=== PATIENT | male | born 1970 ===

== ENCOUNTER 2017-01-10 12:08 | Inpatient (IN) | payer SELFPAY ==
[2017-01-10 12:34] VITALS: RESP 20
[2017-01-10] MEDS ORDERED: Lidocaine 2% Inj (20ml) INFIL ONE (12:46)
[2017-01-10] MEDS ORDERED: Tetanus/Diphtheria Toxoids 0.5 ml Syringe IM ONE ×2 (12:46→12:52)
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
[2017-01-10] MEDS ORDERED: Lidocaine 2% Inj (20ml) ONE (12:52)
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
[2017-01-10] MEDS ORDERED: Sodium Chloride 0.9% 1,000 ML IV ONE ×2 (14:00→16:32)
[2017-01-10] MEDS ORDERED: DiphenhydrAMINE 50 mg/ml Inj IVP STA (14:07)
[2017-01-10] MEDS ORDERED: DiphenhydrAMINE 50 mg/ml Inj ONE (14:25)
[2017-01-10 14:33] LABS: BASO # 0.1 K/uL (0.0-0.2); BASO % 1.7 % (0.0-2.0); EOS # 0.1 K/uL (0.0-0.7); EOS % 1.3 % (0.0-4.0); HEMATOCRIT 41.3 % (35.0-51.0); LYMPH # 1.7 K/uL (1.0-4.3); LYMPH % 28.9 % (20.0-40.0); MEAN CELL VOLUME 89.8 fL (80.0-94.0); MEAN CORPUSCULAR HEMOGLOBIN 30.1 pg (27.0-31.0); MEAN CORPUSCULAR HGB CONC 33.5 g/dL (33.0-37.0); MEAN PLATELET VOLUME 10.7 fL (7.2-11.7); MONO # 0.4 K/uL (0.0-0.8); MONO % 6.1 % (0.0-10.0); WHITE BLOOD COUNT 5.9 K/uL (4.8-10.8)
[2017-01-10 14:36] LABS: CHLORIDE 99 mmol/L (98-107); INR 1.2
[2017-01-10 14:37] LABS: POTASSIUM 3.6 mmol/L (3.6-5.2); SODIUM 135 mmol/L (132-148)
[2017-01-10 14:39] LABS: ALKALINE PHOSPHATASE 73 U/L (38-126); ALT/SGPT 168 U/L (21-72); AST/SGOT 107 U/L (17-59); BILIRUBIN,TOTAL 0.6 mg/dL (0.2-1.3); BLOOD UREA NITROGEN 11 mg/dL (9-20); CARBON DIOXIDE 26 mmol/L (22-30); GFR AFRICAN-AMERICAN > 60; GLUCOSE,RANDOM 93 mg/dL (75-110); TOTAL PROTEIN 8.4 g/dL (6.3-8.3)
[2017-01-10 14:40] LABS: ALCOHOL SERUM < 10 mg/dl (0-10); CALCIUM 8.9 mg/dl (8.6-10.4)
[2017-01-10] MEDS ORDERED: Sodium Chloride 0.9% 1,000 ML ONE (14:47)
[2017-01-10 14:50] LABS: RBC URINE < 1 /hpf (0-3); URINE BILIRUBIN NEGATIVE (NEGATIVE); URINE BLOOD NEGATIVE (NEGATIVE); URINE COLOR Yellow (YELLOW); URINE GLUCOSE (UA) NORMAL (Normal); URINE KETONE NEGATIVE (NEGATIVE); URINE LEUKOCYTE ESTERASE NEG Leu/uL (Negative); URINE PROTEIN 1+ mg/dL (NEGATIVE); WBC URINE < 1 /hpf (0-5)
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
[2017-01-10] MEDS: Sodium Chloride 0.9% 1,000 ML IV SCH (18:00)
[2017-01-10] MEDS: Enoxaparin 100 mg Syringe SC SCH (19:56)
[2017-01-11] MEDS: Sodium Chloride 0.9% 1,000 ML IV SCH ×4 (03:41→23:22)
[2017-01-11 08:11] LABS: INR 1.2
[2017-01-11 08:19] LABS: BASO % 0.4 % (0.0-2.0); EOS # 0.1 K/uL (0.0-0.7); EOS % 2.9 % (0.0-4.0); HEMATOCRIT 39.3 % (35.0-51.0); LYMPH # 1.6 K/uL (1.0-4.3); LYMPH % 35.2 % (20.0-40.0); MEAN CELL VOLUME 90.6 fL (80.0-94.0); MEAN CORPUSCULAR HEMOGLOBIN 29.8 pg (27.0-31.0); MEAN CORPUSCULAR HGB CONC 32.9 g/dL (33.0-37.0); MEAN PLATELET VOLUME 11.5 fL (7.2-11.7); MONO # 0.3 K/uL (0.0-0.8); MONO % 7.3 % (0.0-10.0); NRBC % 0.2 % (0.0-2.0); RED CELL DISTRIBUTION WIDTH 12.9 % (11.5-14.5); WHITE BLOOD COUNT 4.4 K/uL (4.8-10.8)
[2017-01-11 08:54] LABS: CHLORIDE 103 mmol/L (98-107)
[2017-01-11 08:55] LABS: POTASSIUM 3.6 mmol/L (3.6-5.2); SODIUM 135 mmol/L (132-148)
[2017-01-11 08:57] LABS: ALB/GLOB RATIO 0.9 (1.0-2.1); AST/SGOT 125 U/L (17-59); BILIRUBIN,TOTAL 0.9 mg/dL (0.2-1.3); BLOOD UREA NITROGEN 10 mg/dL (9-20); CARBON DIOXIDE 23 mmol/L (22-30); CHOLESTEROL 120 mg/dL (0-199); GFR AFRICAN-AMERICAN > 60; TOTAL PROTEIN 7.3 g/dL (6.3-8.3)
[2017-01-11 08:58] LABS: ALKALINE PHOSPHATASE 58 U/L (38-126); ALT/SGPT 158 U/L (21-72); CALCIUM 8.2 mg/dl (8.6-10.4); GLUCOSE,RANDOM 83 mg/dL (75-110)
[2017-01-11 08:59] LABS: T4 6.57 ug/dL (5.5-11.0)
[2017-01-11] MEDS: Enoxaparin 100 mg Syringe SC SCH (09:00)
[2017-01-11 09:13] LABS: THYROID STIMULATING HORMONE 0.19 mIU/L (0.46-4.68)
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
[2017-01-11] MEDS ORDERED: Enoxaparin 80 mg Syringe SC SCH (11:59)
--- NOTE | 2017-01-11 14:26 | RAD ---
PROCEDURE: Radiographs of the chest and bilateral ribs HISTORY: r/o rib fractures COMPARISON: None available. TECHNIQUE: Frontal radiograph of the chest and multiple oblique radiographs of the bilateral ribs were obtained. FINDINGS: RIGHT RIBS: No fracture or focal lesion visualized. LEFT RIBS: No fracture or focal lesion visualized. LUNGS: Clear. PLEURA: No pneumothorax or pleural fluid. CARDIOVASCULAR: Normal sized heart. No pulmonary vascular congestion. OTHER FINDINGS: None. IMPRESSION: Unremarkable radiographs of the chest and bilateral ribs. No rib fracture.
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
--- NOTE | 2017-01-11 17:34 | CP.PCM.PN ---
<Taqueria Sumner - Last Filed: 01/11/17 23:15> Subjective - Date & Time of Evaluation Date of Evaluation: 01/11/17 Time of Evaluation: 09:47 - Subjective Subjective: Pt seen and examined. Pt reports that he has pain all throughout his body. Pt reports that he is 'about to withdraw from heroin'. Pt reports nausea. Pt denies fever and chill. Objective - Vital Signs/Intake and Output Vital Signs (last 24 hours): Temp Pulse Resp BP Pulse Ox 97.9 F 65 20 154/82 H 98 01/11/17 16:00 01/11/17 16:00 01/11/17 16:00 01/11/17 16:00 01/11/17 16:00 Intake and Output: 01/11/17 01/11/17 06:59 18:59 Intake Total 1000 1450 Output Total 950 Balance 50 1450 - Medications Medications: Current Medications Acetaminophen (Tylenol 325mg Tab) 650 mg PO Q6 PRN PRN Reason: Pain, Mild (1-3) Aspirin (Aspirin Chewable) 81 mg PO DAILY [facility] Last Admin: 01/11/17 12:49 Dose: 81 mg Enoxaparin Sodium (Lovenox) 80 mg SC Q12 [facility] Last Admin: 01/11/17 12:44 Dose: Not Given Sodium Chloride (Sodium Chloride 0.9%) 1,000 mls @ 125 mls/hr IV .Q8H [facility] Last Admin: 01/11/17 10:34 Dose: 125 mls/hr Lisinopril (Zestril) 10 mg PO DAILY [facility] Lorazepam (Ativan) 2 mg IVP Q6H PRN PRN Reason: Seizure activity Last Admin: 01/11/17 11:05 Dose: 2 mg Ondansetron HCl (Zofran Inj) 4 mg IVP Q6 PRN PRN Reason: Nausea/Vomiting Pneumococcal Polyvalent Vaccine (Pneumovax 23 Vaccine) 0.5 ml IM .ONCE ONE Stop: 01/13/17 10:01 Tramadol HCl (Ultram) 50 mg PO TID [facility] Last Admin: 01/11/17 13:14 Dose: 50 mg - Labs Labs: 01/11/17 07:53 01/11/17 07:53 PT 13.5 SECONDS (9.7-12.2) H 01/11/17 07:53 INR 1.2 01/11/17 07:53 APTT 40 SECONDS (21-34) H 01/11/17 07:53 - Constitutional Appears: Unkempt - Head Exam Additional comments: Scalp laceration with stables present, small abrasions on scalp - Eye Exam Eye Exam: EOMI, PERRL - ENT Exam ENT Exam: Mucous Membranes Dry. absent: Mucous Membranes Moist - Respiratory Exam Respiratory Exam: Clear to Ausculation Bilateral. absent: Rales, Rhonchi, Wheezes - Cardiovascular Exam Cardiovascular Exam: +S1, +S2. absent: Gallop, Rubs - GI/Abdominal Exam GI & Abdominal Exam: Soft. absent: Tenderness - Extremities Exam Extremities Exam: Full ROM. absent: Pedal Edema - Neurological Exam Neurological Exam: Alert, Awake, Oriented x3 - Psychiatric Exam Psychiatric exam: Normal Affect, Normal Mood - Skin Skin Exam: Normal Color Assessment and Plan - Assessment and Plan (Free Text) Assessment: Trauma Head CT performed showed no acute intracranial pathology identified. (please see full report) CT C-spine without contrast showed: Straightening of the normal cervical lordosis may be related to muscle spasm or positioning. No evidence of acute fracture or subluxation (please see full report) CT chest abd and pelvis showed: No acute pathology identified. Evaluation of the abdomen and pelvis markedly limited due to paucity of intra-abdominal and intrapelvic fat as well as lack of oral and IV contrast (please see full report) Facial bone x-ray showed: Maxillary spine discontinuity- maxillary spine fracture needs to be considered (please see full report). Ultram for pain control Chest pain Initial EKG - sinus bradycardia at 56/min, NAD, T wave inversion in V2,V3,V4 ( please see full report) Cardiology consulted, Dr. Sandoval, help appreciated. Elevated troponins: 0.5110, 0.3010, 0.1740 Plan for cardiac catheterization tomrrow as per Dr. Sandoval NPO after midnight ASA 81 mg po qd Opioid/Cocaine Abuse and Withdrawal: Methadone taper, 20 mg po given today Zofran prn for nausea NS 125 cc/hr Ativan 2 mg IV q6h Thromocytopenia: Platelets 102,000 Prophylactic Measures: GI: Protonix 40 mg po qd DVT: SCDs <Leo Camp M - Last Filed: 01/12/17 15:31> Objective - Vital Signs/Intake and Output Vital Signs (last 24 hours): Temp Pulse Resp BP Pulse Ox 98.0 F 75 20 117/74 95 01/12/17 12:00 01/12/17 12:00 01/12/17 12:00 01/12/17 12:00 01/12/17 12:00 Intake and Output: 01/12/17 01/12/17 06:59 18:59 Intake Total 2250 Output Total 400 Balance 1850 - Medications Medications: Current Medications Acetaminophen (Tylenol 325mg Tab) 650 mg PO Q6 PRN PRN Reason: Pain, Mild (1-3) Aspirin (Aspirin Chewable) 81 mg PO DAILY [facility] Last Admin: 01/12/17 10:23 Dose: 81 mg Sodium Chloride (Sodium Chloride 0.9%) 1,000 mls @ 125 mls/hr IV .Q8H [facility] Last Admin: 01/12/17 12:39 Dose: 125 mls/hr Lisinopril (Zestril) 10 mg PO DAILY [facility] Last Admin: 01/12/17 10:22 Dose: 10 mg Lorazepam (Ativan) 2 mg IVP Q6H PRN PRN Reason: Seizure activity Last Admin: 01/11/17 11:05 Dose: 2 mg Ondansetron HCl (Zofran Inj) 4 mg IVP Q6 PRN PRN Reason: Nausea/Vomiting Pantoprazole Sodium (Protonix Ec Tab) 40 mg PO DAILY [facility] Last Admin: 01/12/17 10:23 Dose: 40 mg Pneumococcal Polyvalent Vaccine (Pneumovax 23 Vaccine) 0.5 ml IM .ONCE ONE Stop: 01/13/17 10:01 Tramadol HCl (Ultram) 50 mg PO TID [facility] Last Admin: 01/12/17 14:20 Dose: 50 mg - Labs Labs: 01/12/17 06:33 01/12/17 06:33 PT 13.5 SECONDS (9.7-12.2) H 01/11/17 07:53 INR 1.2 01/11/17 07:53 APTT 40 SECONDS (21-34) H 01/11/17 07:53 Attending/Attestation - Attestation I have personally seen and examined this patient.: Yes I have fully participated in the care of the patient.: Yes I have reviewed all pertinent clinical information, including history, physical exam and plan: Yes Notes (Text): 01/12/17 15:30 Patient was seen and examined at bedside with the resident Patient to Will be given 20 mg of methadone today He tapering of methadone for patient's opioid abuse We will request the psychiatry to evaluate the patient. Cardiology evaluation is in progress for elevated troponin. I discussed the plan of care with the resident and agree with the above history and physical and assessment/plan by the resident.
[2017-01-12] MEDS: Sodium Chloride 0.9% 1,000 ML IV SCH ×2 (02:00→12:39)
[2017-01-12 06:36] LABS: BASO % 0.6 % (0.0-2.0); EOS # 0.2 K/uL (0.0-0.7); EOS % 5.2 % (0.0-4.0); LYMPH # 1.7 K/uL (1.0-4.3); LYMPH % 44.5 % (20.0-40.0); MEAN CELL VOLUME 90.5 fL (80.0-94.0); MEAN CORPUSCULAR HEMOGLOBIN 29.9 pg (27.0-31.0); MEAN CORPUSCULAR HGB CONC 33.1 g/dL (33.0-37.0); MEAN PLATELET VOLUME 10.5 fL (7.2-11.7); MONO # 0.3 K/uL (0.0-0.8); MONO % 7.7 % (0.0-10.0); NRBC % 0.1 % (0.0-2.0); RED CELL DISTRIBUTION WIDTH 13.1 % (11.5-14.5); WHITE BLOOD COUNT 3.7 K/uL (4.8-10.8)
[2017-01-12 07:00] LABS: CHLORIDE 102 mmol/L (98-107)
[2017-01-12 07:01] LABS: POTASSIUM 3.9 mmol/L (3.6-5.2); SODIUM 132 mmol/L (132-148)
[2017-01-12 07:03] LABS: GFR AFRICAN-AMERICAN > 60
[2017-01-12 07:04] LABS: ALB/GLOB RATIO 0.8 (1.0-2.1); ALKALINE PHOSPHATASE 55 U/L (38-126); AST/SGOT 120 U/L (17-59); BILIRUBIN,TOTAL 0.3 mg/dL (0.2-1.3); CARBON DIOXIDE 26 mmol/L (22-30); TOTAL PROTEIN 7.1 g/dL (6.3-8.3)
[2017-01-12 07:05] LABS: ALT/SGPT 162 U/L (21-72); BLOOD UREA NITROGEN 9 mg/dL (9-20); CALCIUM 8.2 mg/dl (8.6-10.4); GLUCOSE,RANDOM 87 mg/dL (75-110); MAGNESIUM 1.5 mg/dL (1.6-2.3); PHOSPHOROUS 3.4 mg/dL (2.5-4.5)
--- NOTE | 2017-01-12 07:51 | CARD ---
APPROVED REPORT EKG Measurement Heart [id number] CA [id number] <Conclusion> Sinus bradycardia Voltage criteria for left ventricular hypertrophy ST & T wave abnormality, consider anterior ischemia Prolonged QT Abnormal ECG
[2017-01-12] MEDS ORDERED: Midazolam 2 MG/2 ML VIAL ONE (08:12)
[2017-01-12] MEDS ORDERED: Nitroglycerin 2% Ointment Foilpak UD TOP ONE (08:59)
--- NOTE | 2017-01-12 09:08 | CP.PCM.PN ---
Subjective - Date & Time of Evaluation Date of Evaluation: 01/12/17 Time of Evaluation: 08:54 - Subjective Subjective: PROCEDURE NOTE DOS: 01/12/2017 Indic: ACS Hx of Substance abuse Procedure: [facility] LVgram Preliminary findings LM nL LAD 30-40% mid-LAD w/ myocardial bridging LCx 50% eccentric stenosis proximally 50% mid-LAD lesion RCA right dominant; nL LVgram: nL LV systolic function no gradient across the aortic valve LVEDP 35mmHg Impression: Non-obstructive CAD Normal LV systolic function Plan: Medical therapy Modify cardiac risk factors Drug abstinence Objective - Vital Signs/Intake and Output Vital Signs (last 24 hours): Temp Pulse Resp BP Pulse Ox 97.8 F 61 20 164/67 H 98 01/12/17 06:40 01/12/17 06:40 01/12/17 06:40 01/12/17 06:40 01/12/17 06:40 Intake and Output: 01/12/17 01/12/17 06:59 18:59 Intake Total 2250 Output Total 400 Balance 1850 - Medications Medications: Current Medications Acetaminophen (Tylenol 325mg Tab) 650 mg PO Q6 PRN PRN Reason: Pain, Mild (1-3) Aspirin (Aspirin Chewable) 81 mg PO DAILY [facility] Last Admin: 01/11/17 12:49 Dose: 81 mg Sodium Chloride (Sodium Chloride 0.9%) 1,000 mls @ 125 mls/hr IV .Q8H [facility] Last Admin: 01/12/17 02:00 Dose: Not Given Lisinopril (Zestril) 10 mg PO DAILY [facility] Lorazepam (Ativan) 2 mg IVP Q6H PRN PRN Reason: Seizure activity Last Admin: 01/11/17 11:05 Dose: 2 mg Ondansetron HCl (Zofran Inj) 4 mg IVP Q6 PRN PRN Reason: Nausea/Vomiting Pantoprazole Sodium (Protonix Ec Tab) 40 mg PO DAILY [facility] Pneumococcal Polyvalent Vaccine (Pneumovax 23 Vaccine) 0.5 ml IM .ONCE ONE Stop: 01/13/17 10:01 Tramadol HCl (Ultram) 50 mg PO TID [facility] Last Admin: 01/11/17 17:32 Dose: 50 mg - Labs Labs: 01/12/17 06:33 01/12/17 06:33 PT 13.5 SECONDS (9.7-12.2) H 01/11/17 07:53 INR 1.2 01/11/17 07:53 APTT 40 SECONDS (21-34) H 01/11/17 07:53
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
[2017-01-12] MEDS ORDERED: Pantoprazole 40 mg EC Tab PO SCH (10:00)
[2017-01-12] MEDS: Magnesium Sulfate 1 gm in D5W 1 GM/100 ML BAG IVPB SCH ×2 (11:06→12:37)
--- NOTE | 2017-01-12 13:27 | CP.PCM.PN ---
<DavbradlyTrixien - Last Filed: 01/12/17 13:25> Subjective - Date & Time of Evaluation Date of Evaluation: 01/12/17 Time of Evaluation: :17 - Subjective Subjective: Pt seen and examined. PT reports that he feels sore all over and is experiencing symptoms of opioid withdrawal, which are chills and nausea. Pt denes fever, shortness of breath, headache, dizziness. Objective - Vital Signs/Intake and Output Vital Signs (last 24 hours): Temp Pulse Resp BP Pulse Ox 98.0 F 75 20 117/74 95 01/12/17 12:00 01/12/17 12:00 01/12/17 12:00 01/12/17 12:00 01/12/17 12:00 Intake and Output: 01/12/17 01/12/17 06:59 18:59 Intake Total 2250 Output Total 400 Balance 1850 - Medications Medications: Current Medications Acetaminophen (Tylenol 325mg Tab) 650 mg PO Q6 PRN PRN Reason: Pain, Mild (1-3) Aspirin (Aspirin Chewable) 81 mg PO DAILY [facility] Last Admin: 01/12/17 10:23 Dose: 81 mg Sodium Chloride (Sodium Chloride 0.9%) 1,000 mls @ 125 mls/hr IV .Q8H [facility] Last Admin: 01/12/17 12:39 Dose: 125 mls/hr Lisinopril (Zestril) 10 mg PO DAILY [facility] Last Admin: 01/12/17 10:22 Dose: 10 mg Lorazepam (Ativan) 2 mg IVP Q6H PRN PRN Reason: Seizure activity Last Admin: 01/11/17 11:05 Dose: 2 mg Ondansetron HCl (Zofran Inj) 4 mg IVP Q6 PRN PRN Reason: Nausea/Vomiting Pantoprazole Sodium (Protonix Ec Tab) 40 mg PO DAILY [facility] Last Admin: 01/12/17 10:23 Dose: 40 mg Pneumococcal Polyvalent Vaccine (Pneumovax 23 Vaccine) 0.5 ml IM .ONCE ONE Stop: 01/13/17 10:01 Tramadol HCl (Ultram) 50 mg PO TID [facility] Last Admin: 01/12/17 10:22 Dose: 50 mg - Labs Labs: 01/12/17 06:33 01/12/17 06:33 PT 13.5 SECONDS (9.7-12.2) H 01/11/17 07:53 INR 1.2 01/11/17 07:53 APTT 40 SECONDS (21-34) H 01/11/17 07:53 - Constitutional Appears: Unkempt - Head Exam Head Exam: ATRAUMATIC, NORMOCEPHALIC - Eye Exam Eye Exam: EOMI, PERRL - ENT Exam ENT Exam: Mucous Membranes Moist. absent: Mucous Membranes Dry - Respiratory Exam Respiratory Exam: Clear to Ausculation Bilateral. absent: Rales, Rhonchi, Wheezes - Cardiovascular Exam Cardiovascular Exam: +S1, +S2 - GI/Abdominal Exam GI & Abdominal Exam: Soft. absent: Distended, Guarding, Rigid, Tenderness - Extremities Exam Extremities Exam: Full ROM. absent: Pedal Edema - Neurological Exam Neurological Exam: Alert, Awake, Oriented x3 - Psychiatric Exam Psychiatric exam: Normal Affect, Normal Mood - Skin Skin Exam: Normal Color, Warm Assessment and Plan - Assessment and Plan (Free Text) Assessment: Trauma Head CT performed showed no acute intracranial pathology identified. (please see full report) CT C-spine without contrast showed: Straightening of the normal cervical lordosis may be related to muscle spasm or positioning. No evidence of acute fracture or subluxation (please see full report) CT chest abd and pelvis showed: No acute pathology identified. Evaluation of the abdomen and pelvis markedly limited due to paucity of intra-abdominal and intrapelvic fat as well as lack of oral and IV contrast (please see full report) Facial bone x-ray showed: Maxillary spine discontinuity- maxillary spine fracture needs to be considered (please see full report). [facility] for pain control Chest pain Day 0 s/p cardiac catheterization with Dr. Sandoval. As per Dr. Sandoval, nonobstructive CAD, normal LV systolic function (please see full report). Initial EKG - sinus bradycardia at 56/min, NAD, T wave inversion in V2,V3,V4 ( please see full report) Cardiology consulted, Dr. Sandoval, help appreciated. Elevated troponins: 0.5110, 0.3010, 0.1740 NPO after midnight ASA 81 mg po qd Opioid/Cocaine Abuse and Withdrawal: Methadone taper, 10 mg po given today Zofran prn for nausea NS 125 cc/hr Ativan 2 mg IV q6h HTN: Lisinopril 10 mg po qd Pancytopenia: WBC - 3.7 Platelet count - 91 Transaminitis: AST/ALT: 120/162 Hypomagnesemia: Mg - 1.5 MgS 1 gm x 2 bags Prophylactic Measures: GI: Protonix 40 mg po qd DVT: SCDs NS IVF 125 cc/hr <ZoëLeo M - Last Filed: 01/12/17 17:18> Objective - Vital Signs/Intake and Output Vital Signs (last 24 hours): Temp Pulse Resp BP Pulse Ox 98.3 F 61 20 112/70 97 01/12/17 15:56 01/12/17 15:56 01/12/17 15:56 01/12/17 15:56 01/12/17 15:56 Intake and Output: 01/12/17 01/12/17 06:59 18:59 Intake Total 2250 1680 Output Total 400 Balance 1850 1680 - Medications Medications: Current Medications Acetaminophen (Tylenol 325mg Tab) 650 mg PO Q6 PRN PRN Reason: Pain, Mild (1-3) Aspirin (Aspirin Chewable) 81 mg PO DAILY [facility] Last Admin: 01/12/17 10:23 Dose: 81 mg Sodium Chloride (Sodium Chloride 0.9%) 1,000 mls @ 125 mls/hr IV .Q8H [facility] Last Admin: 01/12/17 12:39 Dose: 125 mls/hr Lisinopril (Zestril) 10 mg PO DAILY [facility] Last Admin: 01/12/17 10:22 Dose: 10 mg Lorazepam (Ativan) 2 mg IVP Q6H PRN PRN Reason: Seizure activity Last Admin: 01/11/17 11:05 Dose: 2 mg Ondansetron HCl (Zofran Inj) 4 mg IVP Q6 PRN PRN Reason: Nausea/Vomiting Pantoprazole Sodium (Protonix Ec Tab) 40 mg PO DAILY [facility] Last Admin: 01/12/17 10:23 Dose: 40 mg Pneumococcal Polyvalent Vaccine (Pneumovax 23 Vaccine) 0.5 ml IM .ONCE ONE Stop: 01/13/17 10:01 Tramadol HCl (Ultram) 50 mg PO TID [facility] Last Admin: 01/12/17 14:20 Dose: 50 mg - Labs Labs: 01/12/17 06:33 01/12/17 06:33 PT 13.5 SECONDS (9.7-12.2) H 01/11/17 07:53 INR 1.2 01/11/17 07:53 APTT 40 SECONDS (21-34) H 01/11/17 07:53 Attending/Attestation - Attestation I have personally seen and examined this patient.: Yes I have fully participated in the care of the patient.: Yes I have reviewed all pertinent clinical information, including history, physical exam and plan: Yes Notes (Text): 01/12/17 17:16 Patient was seen and examined at bedside with the resident Patient states that he is withdrawing from opiate use. We will administer another 10 mg of methadone today Continue to taper methadone. Patient had cardiac catheterization today. No obstructive coronary disease reported. Stop the therapeutic Lovenox Patient is thrombocytopenia. Monitor platelets daily. No active bleeding at this time. I discussed the plan of care with the resident and agree with the above history and physical and assessment/plan by the resident
[2017-01-12 15:57] VITALS: BP 112/70; PULSE 61; TEMP 98.3; O2SAT 97
--- NOTE | 2017-01-12 16:19 | CARD ---
APPROVED REPORT EXAM: Two-dimensional and M-mode echocardiogram with Doppler and color Doppler. Other Information Quality : GoodRhythm : NSR INDICATION Cardiac Disease: CAD Infection:Rule out subacute bacterial endocarditis M-Mode DIMENSIONS RVDd1.99 (2.1-3.2cm)Left Atrium (MM)3.36 (2.5-4.0cm) IVSd1.00 (0.7-1.1cm)Aortic Root3.36 (2.2-3.7cm) LVDd5.94 (4.0-5.6cm)Aortic Cusp Exc.2.18 (1.5-2.0cm) PWd0.96 (0.7-1.1cm)FS (%) 33 % LVDs3.98 (2.0-3.8cm)LVEF (%)61 (>50%) Mitral Valve MV E Oessptti92.1cm/sMV A Ojiydshc55.7cm/sE/A ratio1.6 TDI E/Lateral E'0.0E/Medial E'0.0 Tricuspid Valve TR Peak [id number]/sTR Peak Gr.[id number] LEFT VENTRICLE The left ventricle is normal size. There is normal left ventricular wall thickness. The left ventricular function is normal. The left ventricular ejection fraction is within the normal range. There is normal LV segmental wall motion. The left ventricular diastolic function is normal. RIGHT VENTRICLE The right ventricle is normal size. There is normal right ventricular wall thickness. The right ventricular systolic function is normal. ATRIA The left atrium size is normal. The right atrium size is normal. AORTIC VALVE The aortic valve is mildly thickened but opens well. No aortic regurgitation is present. MITRAL VALVE The mitral valve is mildly thickened. There is no mitral valve regurgitation noted. TRICUSPID VALVE The tricuspid valve leaflets are thickened , but open well. There is trace tricuspid regurgitation. PULMONIC VALVE There is trace pulmonic valvular regurgitation. GREAT VESSELS The aortic root is normal in size. The IVC is dilated. PERICARDIAL EFFUSION There is no pericardial effusion. <Conclusion> The left ventricle is normal size. There is normal left ventricular wall thickness. The left ventricular function is normal. The left ventricular ejection fraction is within the normal range. There is normal LV segmental wall motion. No vegitation seen
--- NOTE | 2017-01-12 16:50 | CARD ---
APPROVED REPORT EKG Measurement Heart [id number] <Conclusion> Sinus bradycardia Voltage criteria for left ventricular hypertrophy T wave abnormality, consider anterior ischemia Prolonged QT Abnormal ECG
[2017-01-13] MEDS ORDERED: Pneumococcal 23-Valent Vaccine IM ONE (10:00)
--- NOTE | 2017-01-24 09:04 | CARDCATH ---
PROCEDURE DATE: 01/12/2017 PROCEDURES: 1. Left heart catheterization. 2. Coronary arteriogram. 3. Left ventriculogram. WEED INSPECTOR: Dr. Kelsi Sandoval. INDICATIONS: ACS. After an informed consent, the patient was brought to the cardiac microbiology lab analyst and draped in the usual st erile fashion. Subsequently, the patient received subcutaneous lidocaine to the right femoral area f or local anesthesia. The right femoral artery was accessed above the inguinal ligament using a Cook needle. Using Seldinger technique, a 6-inch Albanian sheath was placed. Using preshaped catheters, an giograms were taken of the coronary arteries and left ventriculogram was done. RESULTS: CORONARY ARTERIOGRAM: The left main artery bifurcates to LAD and left circumflex artery and is free of any diseases. The LAD revealed a 30-40% stenosis in the mid region with myocardial bridging. The left circumflex artery revealed a 50% eccentric stenosis proximally and a 50% mid circumflex lesi on. The right coronary artery is a right dominant vessel and is free of any stenosis. LEFT VENTRICULOGRAM: The LV systolic function is normal. The ejection fraction is 60%. There was n o gradient across the aortic valve. The LVEDP is 35 mmHg. IMPRESSION: Nonobstructive coronary artery disease. Normal left ventricular systolic function. RECOMMENDATIONS: Medical therapy. Modify cardiac risk factors. Drug abstinence. Kelsi Sandoval MD cc: [phone] TT: 01/24/2017 09:04:09 bobby
--- NOTE | 2017-01-25 09:17 | PQF GENQUE ---
This form is a permanent part of the medical record Dr. Capm, Please provide me with final diagnoses for this patient. Thank you. Clarification of your documentation is requested to better reflect the severity of illness and intensity of treatment of your patient. Indicators present [] Specify: [] [] Specify: [] [] Specify: [] [] Specify: [] Location in the medical record that reflects the above clinical findings: [] Treatment Provided: [] PHYSICIAN'S RESPONSE Based on your medical judgment of the clinical indicators outlined above please clarify the following: [] Practitioner response FINAL DIAGNOSIS: POLYSUBSATNCE ABUSE AND WITHDRAWL COCAINE INDUCED CHEST PAIN [] If unable to determine, please check the box, sign and date. Present On Admission (POA) Indicator: [x] Present at the time of admission [] Not present at the time of admission [] Clinically Undetermined In responding to this query, please exercise your independent professional judgment. The fact that a question is asked does not imply that any particular answer is desired or expected. Thank you for your clarification on this documentation. If you have any questions please call:[ ] * Thank you, [ ] student worker SARANYA
== END 2017-01-12 20:10 | disposition left against medical advice (07) | DRG 917 ==
LOC: C.ER 12:08 → C.9E 14:31 → C.6T 16:18
PROVIDERS: ADMIT Internal Medicine; ATTEND Internal Medicine
PROC: 4A023N7 Measurement of Cardiac Sampling and Pressure, Left Heart, Percutaneous Approach (ICD-10-PCS; principal; 2017-01-10)
PROC: B2151ZZ Fluoroscopy of Left Heart using Low Osmolar Contrast (ICD-10-PCS; 2017-01-10)
PROC: B2111ZZ Fluoroscopy of Multiple Coronary Arteries using Low Osmolar Contrast (ICD-10-PCS; 2017-01-10)
PROC: HZ2ZZZZ Detoxification Services for Substance Abuse Treatment (ICD-10-PCS; 2017-01-11)
PROC: HZ81ZZZ Medication Management for Substance Abuse Treatment, Methadone Maintenance (ICD-10-PCS; 2017-01-11)
DX: T40.5X1A Poisoning by cocaine, accidental (unintentional), initial encounter (principal); I21.4 Non-ST elevation (NSTEMI) myocardial infarction; D61.818 Other pancytopenia; D69.6 Thrombocytopenia, unspecified; E83.42 Hypomagnesemia; F11.23 Opioid dependence with withdrawal; F14.23 Cocaine dependence with withdrawal; S01.01XA Laceration without foreign body of scalp, initial encounter; I10 Essential (primary) hypertension; J45.909 Unspecified asthma, uncomplicated; R07.89 Other chest pain; I25.10 Atherosclerotic heart disease of native coronary artery without angina pectoris; F17.210 Nicotine dependence, cigarettes, uncomplicated; R74.0 Nonspecific elevation of levels of transaminase and lactic acid dehydrogenase [LDH]; Y04.0XXA Assault by unarmed brawl or fight, initial encounter; Z79.82 Long term (current) use of aspirin